=== PATIENT | female | born 1960 | race Caucasian/White ===

== ENCOUNTER → 2018-08-13 | Outpatient (CLI) | payer BC ==
[~2018-08-13] MED LIST: ADULT LOW DOSE81 MG; FLEXERIL; HYDROXYCHLOROQ200 M1 PO; IBUPROFEN200 M2; LYRICA 75 MG CA75 MG; PREVACID 30MG C30 M1 PO
== END ==
LOC: CAT 12:47
DX: K57.30 Diverticulosis of large intestine without perforation or abscess without bleeding (principal); N32.89 Other specified disorders of bladder; R10.32 Left lower quadrant pain

== ENCOUNTER → 2018-09-30 | Outpatient (CLI) | payer BC | LOC: RAD 01:11 | DX: Z12.31 Encounter for screening mammogram for malignant neoplasm of breast (principal) ==

== ENCOUNTER → 2019-10-13 | Outpatient (CLI) | payer BC, OTHER | LOC: BC 11:53 | DX: Z12.31 Encounter for screening mammogram for malignant neoplasm of breast (principal) ==

== ENCOUNTER → 2020-07-09 | Outpatient (CLI) | payer OTHER | LOC: CAT 08:46 | PROVIDERS: ATTEND Family Medicine | DX: Z13.6 Encounter for screening for cardiovascular disorders (principal); I25.10 Atherosclerotic heart disease of native coronary artery without angina pectoris; E78.00 Pure hypercholesterolemia, unspecified ==

== ENCOUNTER → 2020-10-06 | Outpatient (CLI) | payer BC, OTHER | LOC: BC 10:52 | PROVIDERS: ATTEND Family Medicine | DX: Z12.31 Encounter for screening mammogram for malignant neoplasm of breast (principal) ==

== ENCOUNTER → 2021-10-10 | Outpatient (CLI) | payer BC, OTHER | LOC: BC 10:20 | PROVIDERS: ATTEND Family Medicine | DX: Z12.31 Encounter for screening mammogram for malignant neoplasm of breast (principal); N64.89 Other specified disorders of breast ==